=== PATIENT | male | born 1995 | race Caucasian/White ===

== ENCOUNTER 2024-10-21 12:38 | Emergency (ER) | payer BC, SELFPAY ==
[2024-10-21 12:51] VITALS: BP 155/80; PULSE 100; RESP 20; TEMP 36.9; O2SAT 100; BMI 23.9
--- NOTE | 2024-10-21 12:51 | ED.GENADULT ---
HPI - General Adult General Chief complaint: General Medical Stated complaint: Body aches, nausea Time Seen by Provider: 10/21/24 13:15 Source: patient Mode of arrival: ambulatory Limitations: no limitations History of Present Illness ED Provider: Dr. Kvng Mendiola HPI narrative: 29-year-old male with a history of anxiety and paroxysmal atrial fibrillation who presents emergency department for evaluation of dizziness, body aches, muscle and joint pain with symptoms starting this morning. He states that yesterday he did have a slight sore throat which is also present today. Patient felt hot and cold and did have chills. He also had rhinorrhea, cough which is nonproductive, nausea, vomiting x2 and diarrhea 2 days prior x5 episodes per day. He denied chest pain or shortness of breath at rest but does have dyspnea on exertion. Patient also states that he was having an upset stomach feeling. He was also complaining of diffuse pain of his muscles and joints.Patient states that he had 2 episodes of atrial fibrillation and was electric cardioverted in [facility].. He states that he he was told that he does not need to follow-up with cardiology after his 2nd cardioversion. Related Data Previous Rx's ?Medication ?Instructions ?Recorded ondansetron 4 mg disintegrating 4 mg PO Q6-8H PRN nausea and 10/21/24 tablet vomiting #14 tabs oseltamivir 75 mg capsule (Tamiflu) 75 mg PO Q12H 5 days #10 caps 10/21/24 Allergies Allergy/AdvReac Type Severity Reaction Status Date / Time No Known Allergies Allergy Verified 10/21/24 12:54 Review of Systems Review of Systems: Yes all other systems are reviewed and are negative [facility] Past Medical History [facility] Narrative: Social history: Patient smokes 1-2 cigarettes per day. He drinks alcohol 2 times a week. He smokes marijuana. Social History Social History Alcohol intake: current Smoked in Last 30 Days: Yes Use of substances other than those prescribed or required for medical reasons: No Advance Directives: No Advance Directives Information Provided: Yes Physical Exam ED Vital Signs: Vital Signs - 24 hr 10/21/24 12:51 10/21/24 13:53 10/21/24 14:29 Temperature 98.5 F 100.8 F H Pulse Rate 100 99 102 H Respiratory Rate 20 16 18 Blood Pressure 155/80 H 147/81 H 146/81 H Pulse Oximetry 100 100 100 Oxygen Delivery Method Room Air Room Air Room Air 10/21/24 17:02 10/21/24 17:26 Temperature 103.0 F H Pulse Rate 97 101 H Respiratory Rate 17 18 Blood Pressure 106/46 L 110/50 L Pulse Oximetry 100 100 Oxygen Delivery Method Room Air Room Air BMI result Body Mass Index 23.9 Course Course Course Narrative: This is a Rapid Medical Examination (RME) performed by Radames Nelson PA-C in triage. Full HPI, ROS, assessment and treatment plan per primary provider in the Main ED. 29 yo male with history of recurrent afib x2 in the past, hx PTX who presents to the ER for evaluation of diffuse body aches, nausea, headache, dizziness, sore throat that started yesterday and got worse today. No chest pain, palpitations, SOB. HR 102 in triage, regular rhythm. no longer follows with cards, not on a/c. Plan: EKG, viral swab, strep swab Medications Administered Discontinued Medications Generic Name Dose Route Start Last Admin Trade Name Derrekq PRN Reason Stop Dose Admin Acetaminophen 975 mg 10/21/24 17:05 10/21/24 17:24 Acetaminophen 325 Mg Tablet PO 10/21/24 17:06 975 mg ONCE STA Administration Sodium Chloride 1,000 mls @ 999 mls/hr 10/21/24 13:54 10/21/24 15:32 Ns IV 10/21/24 14:54 Infused .Q1H1M STA Infusion Magnesium Sulfate 2 gm in 50 mls @ 25 mls/hr 10/21/24 14:08 10/21/24 15:32 Magnesium Sulfate/H2o IV 10/21/24 16:07 Infused ONCE ONE Infusion Ketorolac Tromethamine 15 mg 10/21/24 13:54 10/21/24 14:17 Ketorolac Tromethamine 15 Mg/Ml Vial IVPUSH 10/21/24 13:55 15 mg ONCE STA Administration Ketorolac Tromethamine 15 mg 10/21/24 16:16 10/21/24 16:25 Ketorolac Tromethamine 15 Mg/Ml Vial IVPUSH 10/21/24 16:17 15 mg ONCE STA Administration Ondansetron HCl 4 mg 10/21/24 13:54 10/21/24 14:17 Ondansetron Hcl 4 Mg/2 Ml Vial IVPUSH 10/21/24 13:55 4 mg ONCE ONE Administration Oseltamivir Phosphate 75 mg 10/21/24 14:16 10/21/24 14:24 Oseltamivir Phosphate 75 Mg Capsule PO 10/21/24 14:17 75 mg ONCE ONE Administration Medical Decision Making Medical Decision Making [facility] Narrative: 29-year-old male with a history of anxiety and paroxysmal atrial fibrillation who presents emergency department for evaluation of dizziness, body aches,, nonproductive cough, dyspnea on exertion, nausea, vomiting, diarrhea muscle and joint pain with symptoms starting this morning. Patient was also complaining of severe fatigue. He denied chest pain or shortness of breath at rest. Vital signs revealed an elevated blood pressure of 155/80 . He was afebrile in his O2 saturation was 100% on room air. Physical examination was unremarkable. Differential diagnosis: ?Includes but is not limited to viral syndrome, COVID-19, influenza, RSV, myocarditis, pericarditis, pneumonia, electrolyte abnormalities, anemia Course: 14:48 My independent interpretation patient's laboratory evaluation is as follows: Thrombocytopenia with a platelet count a [id number]. CK was normal 157. First troponin was below detectable limits. Magnesium was low 1.4. RSV, COVID-19 and rapid strep were negative. Influenza was positive for influenza A. Twelve EKG revealed a right bundle-branch block with ST segment depression in leads 2, 3 and AVF as well as inverted T-waves in 3 and AVF. Patient does have a right bundle-branch block with large R-waves V3 through V6. No old EKG for comparison. Given his positive influenza a and his abnormal EKG I am concerned that the patient may have myocardial injury, myocarditis or pericarditis. I did discuss over tiger text, the patient's presentation and abnormal EKG with Dr. Sales the outbound call center representative on-call. He agreed with the differential and also thought that the patient's abnormal EKG could be secondary to hypertensive heart disease or may be hypertrophic cardiomyopathy. He did agree with an echocardiogram and repeat 3 hour troponin. Patient was treated with normal saline 1000 mL IV, Toradol 15 mg IV, Zofran 4 mg IV and magnesium 2 g IV. Patient will be kept on a cardiac and O2 saturation monitor while he was here in the emergency department. 17:36 Patient was repeat 3 hour troponin was also below detectable limits which is reassuring. The patient's echocardiogram was a normal study which is also reassuring. Patient did require a 2nd dose of Toradol 15 mg IV for pain and also Tylenol 975 mg orally for fever. Patient was able to drink tanja gerda and eat crackers without any difficulty. Patient was discharged home with prescriptions for Zofran and Tamiflu. He was advised to take Tylenol and ibuprofen for pain and fever. He was given printed and verbal instructions and discharged home. Admission/Observation Consideration of admission/observation: Escalation of care including admission/observation considered (Yes) Consult Healthcare Provider Management of the patient was discussed with: Printing Press Machine Operator (Website Designer, Dr. Sales) Lab Data 10/21/24 13:46 10/21/24 13:46 Labs: Lab Results 10/21/24 10/21/24 10/21/24 Range/Units 13:11 13:12 13:45 WBC (4.8-10.8) X10*3/uL RBC (4.60-5.80) X10*6/uL Hgb (14.0-18.0) g/dl Hct (42.0-52.0) % MCV (80.0-98.0) fL MCH (27.0-33.0) pg MCHC (31.0-36.0) g/dl RDW (11.0-16.0) % Plt Count (160-400) X10*3/uL MPV (9.4-12.4) fL Immature Gran % (Auto) (0.0-0.4) % Neut % (Auto) (45-73) % Lymph % (Auto) (20-40) % [place] % (Auto) (2-11) % Eos % (Auto) (0-4) % Baso % (Auto) (0-2) % Lymph # (Auto) (1.2-4.9) X10*3/uL [place] # (Auto) (0.1-1.2) X10*3/uL Eos # (Auto) (0.0-0.4) X10*3/uL Baso # (Auto) (0.0-0.2) X10*3/uL Abs Immat Gran (auto) (0.00-0.03) X10*3/uL Absolute Neuts (auto) (2.0-8.3) x10*3/uL Absolute Nucleated RBC (0.0-0.012) X10*3/uL Nucleated RBC % (auto) (0.0-0.2) /100WBC Smear Tech's Comments APTT (26.0-36.8) SEC Sodium (135-145) mmol/L Potassium (3.3-5.1) mmol/L Chloride (96-108) mmol/L Carbon Dioxide (22-29) mmol/L Anion Gap (12-20) BUN (9-16) mg/dL Creatinine (0.5-1.4) mg/dL Estim Creat Clear Calc Estimated GFR Random Glucose (60-115) mg/dL Calcium (8.4-10.2) mg/dL Magnesium (1.6-2.6) mg/dL Total Bilirubin (0.0-1.0) mg/dL AST (5-37) U/L ALT (0-40) U/L Alkaline Phosphatase (39-117) U/L Total Creatine Kinase (38-174) U/L Troponin I High Sens < 2.7 (<3.5-35.0) ng/L Total Protein (6.5-8.0) g/dL Albumin (3.5-5.0) g/dL Lipase (8-78) U/L Influenza Type A (PCR) POSITIVE A (Negative) Influenza Type B (PCR) NEGATIVE (Negative) RSV RNA Qual (PCR) NEGATIVE (Negative) SARS-CoV-2 RNA (RT-PCR) NEGATIVE (Negative) S. pyogenes GrpA IGOR Negative (Negative) 10/21/24 10/21/24 Range/Units 13:46 17:02 WBC 6.0 (4.8-10.8) X10*3/uL RBC 5.20 (4.60-5.80) X10*6/uL Hgb 15.6 (14.0-18.0) g/dl Hct 44.3 (42.0-52.0) % MCV 85.2 (80.0-98.0) fL MCH 30.0 (27.0-33.0) pg MCHC 35.2 (31.0-36.0) g/dl RDW 12.0 (11.0-16.0) % Plt Count 106 L (160-400) X10*3/uL MPV 11.2 (9.4-12.4) fL Immature Gran % (Auto) 0.3 (0.0-0.4) % Neut % (Auto) 91.2 H (45-73) % Lymph % (Auto) 3.8 L (20-40) % [place] % (Auto) 4.7 (2-11) % Eos % (Auto) 0.0 (0-4) % Baso % (Auto) 0.0 (0-2) % Lymph # (Auto) 0.2 L (1.2-4.9) X10*3/uL [place] # (Auto) 0.3 (0.1-1.2) X10*3/uL Eos # (Auto) 0.0 (0.0-0.4) X10*3/uL Baso # (Auto) 0.0 (0.0-0.2) X10*3/uL Abs Immat Gran (auto) 0.02 (0.00-0.03) X10*3/uL Absolute Neuts (auto) 5.5 (2.0-8.3) x10*3/uL Absolute Nucleated RBC 0.000 (0.0-0.012) X10*3/uL Nucleated RBC % (auto) 0.0 (0.0-0.2) /100WBC Smear Tech's Comments VERIFIED APTT 30.1 (26.0-36.8) SEC Sodium 139 (135-145) mmol/L Potassium 3.7 (3.3-5.1) mmol/L Chloride 105 (96-108) mmol/L Carbon Dioxide 25 (22-29) mmol/L Anion Gap 13 (12-20) BUN 9 (9-16) mg/dL Creatinine 0.94 (0.5-1.4) mg/dL Estim Creat Clear Calc 147.4 Estimated GFR > 60 Random Glucose 94 (60-115) mg/dL Calcium 9.5 (8.4-10.2) mg/dL Magnesium 1.4 L* (1.6-2.6) mg/dL Total Bilirubin 0.8 (0.0-1.0) mg/dL AST 21 (5-37) U/L ALT 22 (0-40) U/L Alkaline Phosphatase 68 (39-117) U/L Total Creatine Kinase 157 (38-174) U/L Troponin I High Sens < 2.7 (<3.5-35.0) ng/L Total Protein 7.8 (6.5-8.0) g/dL Albumin 4.7 (3.5-5.0) g/dL Lipase 11 (8-78) U/L Influenza Type A (PCR) (Negative) Influenza Type B (PCR) (Negative) RSV RNA Qual (PCR) (Negative) SARS-CoV-2 RNA (RT-PCR) (Negative) S. pyogenes GrpA IGOR (Negative) Discharge Plan Discharge Clinical Impression: Influenza A, Fever, Right bundle branch block Patient Disposition: Home, Self-Care Instructions: Influenza (ED) Additional Instructions: Your blood work was unremarkable except for low platelet count of a 106,000. Normal platelet count is 150,000-450,000. This could be related to the influenza virus. You should have this repeated 2 weeks after your symptoms resolved. Your high sensitive troponin I test was initially below detectable limits and the 3 hour repeat high sensitive troponin I test was also below detectable limits which is reassuring and suggests that you do not have any inflammation of your heart or heart damage caused by the influenza virus. You also had an echocardiogram which was completely normal. Take Zofran ODT 4 mg pills, 1 pill dissolved in your mouth every 8 hours as needed for nausea and vomiting. Take Tamiflu 75 mg, 1 pill every 12 hours for 5 days. This medication should help reduce the number of days that your sick with the flu. Take ibuprofen 200 mg pills, 2 pills every 6 hours as needed for pain or fever. Take Tylenol (acetaminophen) 500 mg pills, 2 pills every 6 hours as needed for pain or fever. Follow-up with your doctor in 2 days. Please return to the emergency department if your symptoms get worse or if you develop any symptoms that are concerning to you. I sent your prescriptions to the [facility] on [address] [place] [address] in [place] Prescriptions: New ondansetron 4 mg tablet,disintegrating 4 mg PO Q6-8H PRN (Reason: nausea and vomiting) Qty: 14 0RF oseltamivir [Tamiflu] 75 mg capsule 75 mg PO Q12H 5 Days Qty: 10 0RF Print Language: [place]
--- NOTE | 2024-10-21 12:53 | ECG_ITS ---
Test Reason : diziness Blood Pressure : */* mmHG Vent. Rate : 98 BPM Atrial Rate : 98 BPM P-R Int : 128 ms QRS Dur : 104 ms QT Int : 314 ms P-R-T Axes : 30 88 -14 degrees QTcB Int : 400 ms Normal sinus rhythm Incomplete right bundle branch block Marked ST abnormality, possible inferior subendocardial injury Abnormal ECG No previous ECGs available Referred By: Ryanne Nelson Electronically Signed By: MINOR MESA MD
[2024-10-21 13:35] LABS: IDNOW Serial# 58CA691E; Strep A Nucleic Acid Negative (Negative)
[2024-10-21 13:52] LABS: Hematocrit 44.3 % (42.0-52.0); Hemoglobin 15.6 g/dl (14.0-18.0); Imm Gran Abs Auto 0.02 X10*3/uL (0.00-0.03); Imm Gran Pct Auto 0.3 % (0.0-0.4); Lymphocytes Absolute Auto 0.2 X10*3/uL (1.2-4.9); Lymphocytes Percent Auto 3.8 % (20-40); MANUAL DIFF FLAG SCAN; Mean Corpuscular HGB Conc 35.2 g/dl (31.0-36.0); Mean Corpuscular Volume 85.2 fL (80.0-98.0); Mean Platelet Volume 11.2 fL (9.4-12.4); Monocytes Absolute Auto 0.3 X10*3/uL (0.1-1.2); Monocytes Percent Auto 4.7 % (2-11); Neutrophils Absolute Auto 5.5 x10*3/uL (2.0-8.3); Neutrophils Percent Auto 91.2 % (45-73); Platelet Count 106 X10*3/uL (160-400); SCAN SMEAR FLAG 1
[2024-10-21 13:53] VITALS: BP 147/81; PULSE 99; RESP 16; O2SAT 100
[2024-10-21 13:59] LABS: Partial Thromboplastin Time 30.1 SEC (26.0-36.8)
[2024-10-21 13:59] LABS: Influenza A PCR POSITIVE (Negative); Influenza B PCR NEGATIVE (Negative); Resp Syncy Virus RNA Qual PCR NEGATIVE (Negative); SARS COV2 PCR INHOUSE NEGATIVE (Negative)
[2024-10-21 14:06] LABS: Alanine Aminotransferase 22 U/L (0-40); Albumin Level 4.7 g/dL (3.5-5.0); Alkaline Phosphatase 68 U/L (39-117); Anion Gap 13 (12-20); Aspartate Amino Transferase 21 U/L (5-37); Bilirubin Total 0.8 mg/dL (0.0-1.0); Blood Urea Nitrogen 9 mg/dL (9-16); Calcium 9.5 mg/dL (8.4-10.2); Carbon Dioxide 25 mmol/L (22-29); Chloride 105 mmol/L (96-108); Creatinine Clr Calc Pharmacy 147.4; Estimated Glomerular Filt Rate > 60; Glucose Random 94 mg/dL (60-115); Lipase 11 U/L (8-78); Potassium 3.7 mmol/L (3.3-5.1); Sodium 139 mmol/L (135-145); Total Protein 7.8 g/dL (6.5-8.0)
--- NOTE | 2024-10-21 14:06 | CA_ITS ---
Transthoracic Echocardiogram Patient (Last, First, Middle): Sammy Gallardo, Gender: Male Date of : 1995 Age: 29 Procedure Date: 10/21/2024 Procedure Type: Transthoracic Echocardiogram Location: ED Height: 195.58 cm Weight: 91.17 kg BSA: 2.24 m2 Heart Rate: bpm BP: 147 / 81 mmHg Investment Sales Assistant: Referring MD: Kvng Mendiola MD National Business Director: Asim Sales MD Symptoms: Influenza, ST segment depression 2, 3 , AVF Study Quality: Good ECG Rhythm: Sinus Conclusions: - Normal study Findings Left Ventricle Normal left ventricular size, thickness, and systolic function. The visually estimated ejection fraction is between 60-65%. Spectral Doppler is indicative of a normal filling pattern. Right Ventricle Normal right ventricular cavity size and systolic function. Atria Both atria are normal in size. Aortic Valve Normal aortic valve structure and function. There is no aortic valve stenosis. There is no aortic valve regurgitation. Mitral Valve Normal mitral valve structure and function. There is trace mitral valve regurgitation. There is no mitral valve stenosis. Pulmonic Valve The pulmonic valve is likely normal. Tricuspid Valve Normal tricuspid valve structure. There is trace tricuspid valve regurgitation. The right ventricular systolic pressure is normal. The right ventricular systolic pressure is 25 mmHg. Normal right atrial pressure. There is no evidence of pulmonary hypertension. Great Vessels All visible segments of the aorta are normal in size. There is no dilatation of the ascending aorta. The visualized portions of the pulmonary artery and branches are normal. Venous The inferior vena cava is normal in size and collapses greater than 50% with inspiration. Pericardium/Pleural There is no evidence of pericardial effusion. Prior Study Comparison No prior study available for comparison. Measurements 2D Linear Measurements IVSd: 0.91 0.6-0.9/0.6-1.0 cm LVIDd: 4.96 3.9-5.3/4.2-5.9 cm LVIDd Index: 2.21 2.4-3.2/2.2-3.1 cm/m2 LVIDs: 3.14 2.0-3.6 cm LVPWd: 0.88 0.7-1.1 cm Ao Root: 3.00 2.1-3.5 cm LA Diam: 3.10 2.7-3.8/3.0-4.0 cm LAIDs Index: 1.38 1.5-2.3 cm/m2 LV Mass: 192.80 67-162/88-224 g LV Mass Index: 86.07 43-95/49-115 g/m2 LVOT Diam: 2.40 3.0+(-)1.3 cm Mitral Valve MV Pk E: 1.01 MV PK A: 0.74 MV Decel Time: 139.00 E/A: 1.40 E'Lateral: 21.40 E'Medial: 11.60 E/E' Med: 8.70 E/E' Lat: 4.70 PHT: 41.00 MVA PHT: 5.37 Decel Trego: 7.27 Aortic Valve AoV Pk Cornel: 2.05 AoV Mn Cornel: 1.19 AoV VTI: 0.32 AoV Pk Grad: 17.00 Aov Mn Grad: 8.00 JOSELIN Cont.VTI: 3.11 LVOT LVOT Pk Cornel: 1.44 LVOT Mn Cornel: 0.91 LVOT VTI: 0.22 LVOT Pk Grad: 8.00 LVOT Mn Grad: 4.00 LVOT Diam: 2.40 LVOT Area: 4.52 Diastolic Function MV Pk E: 1.01 MV Pk A: 0.74 E/A: 1.40 E'Medial: 11.60 E/E' Med: 8.70 E' Laterial: 21.40 E/E' Lat: 4.70 Right Ventricle TAPSE (mm): 43.00 TVS' Cornel: 18.00 Tricuspid Valve TR Pk Cornel: 2.33 TR Pk Grad: 22.00 RA Press: 3.00 RVSP: 25.00 Great Vessels Aorta Ao Root-2D: 3.00 2.0-3.7 cm Ao Asc: 3.00 2.1-3.4 cm Pulmonary Valve PV Pk Cornel: 1.67 Peak PV Grad: 11.00 Updated in Other Vendor System with Status of Final Asim Sales MD electronically signed on 10/21/2024 4:16:22 PM with status of Final
[2024-10-21 14:08] LABS: Magnesium 1.4 mg/dL (1.6-2.6)
[2024-10-21 14:10] LABS: Troponin-I High Sensitivity < 2.7 ng/L (<3.5-35.0)
[2024-10-21 14:14] LABS: SLIDE REVIEW VERIFIED
[2024-10-21] MEDS: ondansetron HCL 4 MG/2 ML VIAL IVPUSH (14:17)
[2024-10-21] MEDS: Ketorolac Tromethamine 15 MG/ML VIAL IVPUSH ×2 (14:17→16:25)
[2024-10-21] MEDS: 0.9 % Sodium Chloride 1,000 ML 999 ML IV (14:17)
[2024-10-21] MEDS: Magnesium Sulfate/H2O 2 GM/50 ML PIGGYBACK IV (14:18)
[2024-10-21] MEDS: Oseltamivir Phosphate 75 MG CAPSULE PO (14:24)
[2024-10-21 14:29] VITALS: BP 146/81; PULSE 102; RESP 18; TEMP 38.2; O2SAT 100
--- NOTE | 2024-10-21 15:49 | PC.NURSE ---
ECHO completed, awaits results. Mg completed. NSR on tele. Restful with eyes closed
[2024-10-21 17:02] VITALS: BP 106/46; PULSE 97; RESP 17; TEMP 39.4; O2SAT 100
[2024-10-21] MEDS: Acetaminophen 325 MG TABLET 975 MG PO (17:24)
[2024-10-21 17:26] VITALS: BP 110/50; PULSE 101; RESP 18; O2SAT 100
[2024-10-21 17:28] LABS: Troponin-I High Sensitivity < 2.7 ng/L (<3.5-35.0)
[2024-10-21 18:11] VITALS: BP 110/50; PULSE 101; RESP 18; TEMP 37.7; O2SAT 100
== END 2024-10-21 18:54 | disposition home or self-care (01) ==
PROVIDERS: Physician Assistant; Emergency Provider Emergency Medicine Emergency Medical Services
DX: J10.1 Influenza due to other identified influenza virus with other respiratory manifestations (principal); I45.10 Unspecified right bundle-branch block; M79.10 Myalgia, unspecified site; R11.2 Nausea with vomiting, unspecified; F41.9 Anxiety disorder, unspecified; I48.0 Paroxysmal atrial fibrillation; R50.9 Fever, unspecified; F17.210 Nicotine dependence, cigarettes, uncomplicated; Z03.818 Encounter for observation for suspected exposure to other biological agents ruled out; Z79.899 Other long term (current) drug therapy
CPT/HCPCS: 0241U; 36415; 80053; 82550; 83690; 83735; 84484; 85025; 85730; 87651; 93005; 93306; 96361; 96374; 96375; 96376; 99285; J1885; J2405; J3475; Q9957

== ENCOUNTER → 2024-10-21 14:06 | Outpatient (BNV) | payer BC, SELFPAY | PROVIDERS: Emergency Provider Emergency Medicine Emergency Medical Services; Visit Provider Internal Medicine Cardiovascular Disease | DX: R94.31 Abnormal electrocardiogram [ECG] [EKG] (principal) | CPT/HCPCS: 93010 ==